=== PATIENT | female | born 1945 | race African-American/Black ===

== ENCOUNTER 2018-06-15 16:17 | Emergency (ER) | payer MEDICARE, BC ==
[~2018-06-15] VITALS: Ht 167.6 cm; Wt 73.0 kg
[2018-06-15] MEDS ORDERED: TETANUS, DIPHTHERIA, PERTUSSIS VAC/PF 0.5ML (>7YR OLD) IM ONE (18:15)
[2018-06-15] MEDS ORDERED: LIDOCAINE 1%/EPI 1:100,000 10 ML VIAL IJ ONE (18:15)
[2018-06-15] MEDS ORDERED: ACETAMINOPHEN 325MG TABLET PO ONE (18:15)
[2018-06-15] MEDS ORDERED: CEPHALEXIN 250MG CAPSULE PO ONE (21:45)
[2018-06-15 22:14] VITALS: BP 136/86
== END 2018-06-15 22:14 | disposition home or self-care (01) ==
LOC: ER 16:17
DX: S41.111A Laceration without foreign body of right upper arm, initial encounter (principal); S21.211A Laceration without foreign body of right back wall of thorax without penetration into thoracic cavity, initial encounter; I10 Essential (primary) hypertension; M48.04 Spinal stenosis, thoracic region; E04.1 Nontoxic single thyroid nodule; W01.110A Fall on same level from slipping, tripping and stumbling with subsequent striking against sharp glass, initial encounter; Y93.E1 Activity, personal bathing and showering; Y92.012 Bathroom of single-family (private) house as the place of occurrence of the external cause
CPT/HCPCS: 12004; 72128; 73060; 90471; 90715; 99284; J3490